=== PATIENT | male | born 1995 | race African-American/Black ===

== ENCOUNTER 2021-08-16 14:21 | Emergency (ER) | payer OTHER ==
[~2021-08-16] VITALS: Ht 180.3 cm; Wt 66.7 kg
[2021-08-16 14:31] VITALS: BP 136/63
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
--- NOTE | 2021-08-16 15:42 | NUR ---
PATEL DAVENPORT AT BEDSIDE EXAMINING PT
--- NOTE | 2021-08-16 16:05 | NUR ---
Patient discharged with v/s stable. Written and verbal after care instructions ABOUT MEDICAL SCREENING EXAM given and explained. Patient verbalized understanding. Ambulatory with steady gait. All questions addressed prior to discharge. Advised to follow up with PMD.
[2021-08-16 16:06] VITALS: BP 136/63
== END 2021-08-16 16:05 | disposition home or self-care (01) ==
LOC: MED 14:21
DX: R36.1 Hematospermia (principal)
CPT/HCPCS: 81002; 99282